=== PATIENT | female | born 1995 | race Caucasian/White ===

== ENCOUNTER → 2016-09-03 16:35 | Observation (INO) ==
[2016-09-03 13:06] LABS: Basophils % 0.2 %; Eosinophils % 0.3 %; Hematocrit 34.1 % (35.3-44.9); Immature Granulocytes % 0.3 % (0-4); Lymphocytes # 1.2 K/mcL (0.6-4.6); Lymphocytes % 13.1 %; Mean Corpuscular HGB Conc 35.2 g/dL (31.6-35.5); Mean Corpuscular Hemoglobin 32.4 pg (28.0-33.3); Mean Corpuscular Volume 92.2 fL (83.0-100.0); Mean Platelet Volume 11.7 fL (9.4-12.4); Monocytes # 0.5 K/mcL (0.0-1.3); Monocytes % 5.4 %; Neutrophils # 7.5 K/mcL (1.6-8.9); Platelet Count 167 K/mcL (140-400); Red Cell Distribution Width 13.4 % (11.5-14.5); Segmented Neutrophils % 80.7 %
[2016-09-03 13:13] LABS: Alanine Aminotransferase 8 Units/L (0-55); Aspartate Amino Transferase 12 Units/L (5-34); BUN/Creatinine Ratio 11 (6-26); Blood Urea Nitrogen 8 mg/dL (7-20); Lactate Dehydrogenase 155 Units/L (159-327); Uric Acid 4.5 mg/dL (2.6-6.0); eGFR For African Americans > 60 (> 60); eGFR For Non-African Americans > 60 (> 60)
[2016-09-03 14:05] LABS: Protein/Creatinine Ratio,Urine 0.12 mg/mg (0-0.20)
--- NOTE | 2016-09-03 15:05 | Discharge Summary ---
Date of Encounter: 09/03/16 Time of Encounter: 15:06 - Discharge Diagnosis (1) Hypertension affecting in third trimester Priority: Primary Status: Acute Comments: Patient sent to labor and delivery triage for evaluation after being seen in office today for routine appointment with increased blood pressure. She states this morning that she had a headache and blurry vision; she denies the aforementioned currently. She states positive movement. She denies LOF, vaginal discharge, and vaginal bleeding. Upon arrival patient's blood pressures were 160-170/90-100. PIH labs and urine drawn - WNL Serial blood pressure Extended monitoring - Reactive NST per gestational age IV labetalol 20 mg given - blood pressure stabilizes First dose PO labetalol given in triage and blood pressure monitored for 2 hours after dose prior to discharge. Discharge home with 100mg PO labetalol TID, blood pressure monitoring at home, and follow up with Dr Miller on Thursday in office. POC per consult with Dr Montelongo. (2) 28 weeks gestation of Priority: Secondary Status: Acute Comments: Follow up with Dr Miller on Thursday (3) Rh negative status during Priority: Primary Status: Acute Comments: Rhogam not given in office today. Will give in triage prior to discharge. Qualifiers: Trimester: third trimester Qualified Code(s): O09.893 - Supervision of other high risk pregnancies, third trimester - Discharge Medications Prescriptions: Blood Pressure Kit Med,Large [Blood Pressure Monitor] 1 each MC ONCE #1 kit Labetalol [Trandate] 100 mg PO TID #90 tablet Home Medications: Blood Pressure Kit Med,Large [Blood Pressure Monitor] 1 each MC ONCE #1 kit 10/13 [Rx] Labetalol [Trandate] 100 mg PO TID #90 tablet 09/03/16 [Rx] Vit Calc,Iron,Folic [ Vitamins] 1 tab PO DAILY 09/03/16 [ History] Ranitidine HCl 150 mg PO DAILY 09/03/16 [History] Allergies/Adverse Reactions: Allergies No Known Allergies Allergy (Verified 09/03/16 12:19) Data Procedures and tests throughout hospitalization: Laboratory Tests 09/03/16 09/03/16 09/03/16 12:40 12:40 12:40 WBC 9.3 RBC 3.70 L Hgb 12.0 Hct 34.1 L MCV 92.2 MCH 32.4 MCHC 35.2 RDW 13.4 Plt Count 167 MPV 11.7 Immature Gran % 0.3 Seg Neutrophils % 80.7 Lymphocytes % 13.1 Monocytes % 5.4 Eosinophils % 0.3 Basophils % 0.2 Neutrophils # 7.5 Lymphocytes # 1.2 Monocytes # 0.5 Eosinophils # 0.0 Basophils # 0.0 BUN 8 Creatinine 0.71 Est GFR ( Amer) > 60 Est GFR (Non-Af Amer) > 60 BUN/Creatinine Ratio 11 Uric Acid 4.5 AST 12 ALT 8 Lactate Dehydrogenase 155 L Urine Creatinine Protein/Creatinin Ratio Urine Total Protein Blood Type A NEGATIVE Antibody Screen NEGATIVE 09/03/16 13:27 WBC RBC Hgb Hct MCV MCH MCHC RDW Plt Count MPV Immature Gran % Seg Neutrophils % Lymphocytes % Monocytes % Eosinophils % Basophils % Neutrophils # Lymphocytes # Monocytes # Eosinophils # Basophils # BUN Creatinine Est GFR ( Amer) Est GFR (Non-Af Amer) BUN/Creatinine Ratio Uric Acid AST ALT Lactate Dehydrogenase Urine Creatinine 69 Protein/Creatinin Ratio 0.12 Urine Total Protein 8 Blood Type Antibody Screen Labs on day of discharge: Labs from last 24 hours 09/03/16 09/03/16 09/03/16 13:27 12:40 12:40 WBC 9.3 RBC 3.70 L Hgb 12.0 Hct 34.1 L MCV 92.2 MCH 32.4 MCHC 35.2 RDW 13.4 Plt Count 167 MPV 11.7 Immature Gran % 0.3 Seg Neutrophils % 80.7 Lymphocytes % 13.1 Monocytes % 5.4 Eosinophils % 0.3 Basophils % 0.2 Neutrophils # 7.5 Lymphocytes # 1.2 Monocytes # 0.5 Eosinophils # 0.0 Basophils # 0.0 BUN 8 Creatinine 0.71 Est GFR ( Amer) > 60 Est GFR (Non-Af Amer) > 60 BUN/Creatinine Ratio 11 Uric Acid 4.5 AST 12 ALT 8 Lactate Dehydrogenase 155 L Urine Creatinine 69 Protein/Creatinin Ratio 0.12 Urine Total Protein 8 Blood Type Antibody Screen 09/03/16 12:40 WBC RBC Hgb Hct MCV MCH MCHC RDW Plt Count MPV Immature Gran % Seg Neutrophils % Lymphocytes % Monocytes % Eosinophils % Basophils % Neutrophils # Lymphocytes # Monocytes # Eosinophils # Basophils # BUN Creatinine Est GFR ( Amer) Est GFR (Non-Af Amer) BUN/Creatinine Ratio Uric Acid AST ALT Lactate Dehydrogenase Urine Creatinine Protein/Creatinin Ratio Urine Total Protein Blood Type A NEGATIVE Antibody Screen NEGATIVE Date of admission: 09/03/16 12:11 Primary care physician: PCP NO Discharging clinician: Kendra Whitt Anticipated date of discharge: 09/03/16 - Patient Status Disposition: Home, Self-Care Condition: Good Functional capacity at discharge: independent ambulation - Discharge Instructions Follow Up With: NO,PCP [Primary Care Provider] - Tino Miller MD [Partnered Physician] - Additional Instructions: LABOR AND DELIVERY DISCHARGE INSTRUCTIONS Signs and Symptoms to be Reported to your Doctor Immediately: * Sudden gush, continuous or intermittent lead of fluid from vagina (note the time of gush and color of fluid) * Onset of bright red vaginal bleeding with or without pain (if you had a vaginal exam during this visit you may notice some dark red spotting. This is normal.) * Lower abdominal cramping or backache that is premenstrual-like feeling. * More than 6 contractions in one hour. * Burning during urination, having to urinate more frequently or pain in your mid-back. * A change in the baby's activity. This could be an increase or decrease in activity. * Severe headache which does not go away with tylenol. * Sudden swelling in the face, hands, arms and/or legs. * Upper abdominal pain - sometimes associated with heartburn or nausea and is not relieved by Maalox, Mylanta or Tums. * Dizziness or blurred vision or visual disturbances (seeing stars/lights). * Kick Counts One hour after a meal, lay down on one side in a quiet place. Count the number of sara the baby moves during an hour. If less than 6 movements, notify your physician. Diet: *Force fluids - 8-10 tall glasses of fluid per day. May include popsicles and jello. 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 No decels Appropriate for gestational age No contractions per toco, palpation, or patient report. Uterus palpates soft - Extremities Exam Extremities exam IM: Present: normal capillary refill, normal inspection, radial pulses palpable and symetrical - Neurological Exam Neurological exam: alert, oriented X3, reflexes normal - VTE Reasons for not Prescribing Prophylaxis: Treatment not Indicated - Low risk for VTE
[~2016-09-03 16:35] MED LIST: *HR* Labetalol 20 MG/4 ML SYRINGE IVP ONE; *HR* Labetalol 20 MG/4 ML SYRINGE IVP STA; Rho Immune Globulin 1,500 UNIT SYRINGE IM ONE
== END | disposition home or self-care (01) ==
LOC: 1NENULAB
PROVIDERS: ADMIT Obstetrics & Gynecology; ATTEND Obstetrics & Gynecology

== ENCOUNTER → 2016-09-04 21:02 | Observation (INO) ==
[2016-09-04 18:57] LABS: Basophils % 0.2 %; Hematocrit 32.7 % (35.3-44.9); Hemoglobin 11.2 g/dL (11.5-15.4); Immature Granulocytes % 13.6 % (0-4); Lymphocytes # 0.5 K/mcL (0.6-4.6); Lymphocytes % 5.5 %; Mean Corpuscular HGB Conc 34.3 g/dL (31.6-35.5); Mean Corpuscular Hemoglobin 31.7 pg (28.0-33.3); Mean Corpuscular Volume 92.6 fL (83.0-100.0); Mean Platelet Volume 11.6 fL (9.4-12.4); Monocytes # 0.3 K/mcL (0.0-1.3); Monocytes % 2.7 %; Neutrophils # 1.3 K/mcL (1.6-8.9); Platelet Count 161 K/mcL (140-400); Red Blood Count 3.53 M/mcL (3.82-4.97); Red Cell Distribution Width 13.4 % (11.5-14.5)
[2016-09-04 19:08] LABS: Alanine Aminotransferase 8 Units/L (0-55); Aspartate Amino Transferase 12 Units/L (5-34); BUN/Creatinine Ratio 11 (6-26); Blood Urea Nitrogen 8 mg/dL (7-20); Lactate Dehydrogenase 149 Units/L (159-327); Uric Acid 4.4 mg/dL (2.6-6.0); eGFR For African Americans > 60 (> 60); eGFR For Non-African Americans > 60 (> 60)
[2016-09-04 19:21] LABS: Platelet Estimate Normal (Normal)
--- NOTE | 2016-09-04 20:22 | Discharge Summary ---
Date of Encounter: 09/04/16 Time of Encounter: 20:22 - Discharge Diagnosis (1) 28 weeks gestation of Priority: Primary Status: Acute Comments: PIH evaluation (2) Hypertension affecting in third trimester Priority: Secondary Status: Acute Comments: stable BP Discussed patient with Dr. York. Patient currently on Labetalol 100mg po TID. home with 24 hour urine start baby asprin daily - Discharge Medications Prescriptions: Aspirin 81 mg PO DAILY #30 tab.chew Home Medications: Blood Pressure Kit Med,Large [Blood Pressure Monitor] 1 each ONCE #1 kit 10/13 [Rx] Labetalol [Trandate] 100 mg PO TID #90 tablet 09/03/16 [Rx] Vit Calc,Iron,Folic [ Vitamins] 1 tab PO DAILY 09/03/16 [ History] Ranitidine HCl 150 mg PO BID 09/03/16 [History] Aspirin 81 mg PO DAILY #30 tab.chew 09/04/16 [Rx] Allergies/Adverse Reactions: Allergies No Known Allergies Allergy (Verified 09/04/16 18:23) Data Procedures and tests throughout hospitalization: Laboratory Tests 09/04/16 09/04/16 18:43 18:43 WBC 9.4 RBC 3.53 L Hgb 11.2 L Hct 32.7 L MCV 92.6 MCH 31.7 MCHC 34.3 RDW 13.4 Plt Count 161 MPV 11.6 Immature Gran % 13.6 H Seg Neutrophils % 14.0 Lymphocytes % 5.5 Monocytes % 2.7 Eosinophils % 64.0 Basophils % 0.2 Neutrophils # 1.3 L Lymphocytes # 0.5 L Monocytes # 0.3 Eosinophils # 6.0 H Basophils # 0.0 Platelet Estimate Normal BUN 8 Creatinine 0.73 Est GFR ( Amer) > 60 Est GFR (Non-Af Amer) > 60 BUN/Creatinine Ratio 11 Uric Acid 4.4 AST 12 ALT 8 Lactate Dehydrogenase 149 L Labs on day of discharge: Labs from last 24 hours 09/04/16 09/04/16 18:43 18:43 WBC 9.4 RBC 3.53 L Hgb 11.2 L Hct 32.7 L MCV 92.6 MCH 31.7 MCHC 34.3 RDW 13.4 Plt Count 161 MPV 11.6 Immature Gran % 13.6 H Seg Neutrophils % 14.0 Lymphocytes % 5.5 Monocytes % 2.7 Eosinophils % 64.0 Basophils % 0.2 Neutrophils # 1.3 L Lymphocytes # 0.5 L Monocytes # 0.3 Eosinophils # 6.0 H Basophils # 0.0 Platelet Estimate Normal BUN 8 Creatinine 0.73 Est GFR ( Amer) > 60 Est GFR (Non-Af Amer) > 60 BUN/Creatinine Ratio 11 Uric Acid 4.4 AST 12 ALT 8 Lactate Dehydrogenase 149 L Date of admission: 09/04/16 18:04 Discharging clinician: Marietta Weathers Anticipated date of discharge: 09/04/16 - Patient Status Disposition: Home, Self-Care Condition: Good Functional capacity at discharge: independent ambulation - Discharge Instructions Follow Up With: Tino Miller MD [Partnered Physician] - - Diet and Activity Activity: increase activity as tolerated Diet: regular diet Hospital Course SECURITY REP Hospital course: Patient is 21 y/o at 28w4d presents to labor and delivery with c/o elevated BP at home with cuff despite her labetalol. Patient also states after labetalol she felt dizzy and light headed but had not ate anything. Last dose was 100mg po at 1200. Patient denies headache, visual disturbances or epigastric pain. Patient is scheduled to follow up with Dr. Miller on Thursday. Time Attestation: Total time spent providing and/or coordinating discharge services: Time Spent: Less than 30 minutes Exam - Constitutional General appearance IM: A&O X 3, pleasant, answers questions appropriately - Respiratory Respiratory exam: Present: CTAB - Cardiovascular Cardiovascular exam IM: Present: RRR, +S1, +S2 - GI/Abdominal GI/Abdominal exam IM: normal bowel sounds - Extremities Exam Extremities exam IM: Present: full ROM, normal capillary refill, normal inspection - Neurological Exam Neurological exam: alert, oriented X3, reflexes normal - Other Additional findings: 2+DTRs no clonus. - VTE Reasons for not Prescribing Prophylaxis: Treatment not Indicated - Low risk for VTE
== END | disposition home or self-care (01) ==
LOC: 1NENULAB

== ENCOUNTER 2016-09-17 15:56 | Observation (INO) ==
[2016-09-17] MEDS ORDERED: Betamethasone Acet/SodPhos 6 MG/ML MDV IM SCH (16:15)
[2016-09-17 16:25] VITALS: BP 168/88
[2016-09-17 16:28] LABS: Basophils % 0.2 %; Eosinophils % 0.4 %; Hematocrit 33.2 % (35.3-44.9); Hemoglobin 11.5 g/dL (11.5-15.4); Immature Granulocytes % 0.7 % (0-4); Lymphocytes # 1.2 K/mcL (0.6-4.6); Lymphocytes % 12.6 %; Mean Corpuscular HGB Conc 34.6 g/dL (31.6-35.5); Mean Corpuscular Hemoglobin 32.2 pg (28.0-33.3); Mean Platelet Volume 11.3 fL (9.4-12.4); Monocytes # 0.6 K/mcL (0.0-1.3); Monocytes % 6.2 %; Neutrophils # 7.9 K/mcL (1.6-8.9); Platelet Count 182 K/mcL (140-400); Red Blood Count 3.57 M/mcL (3.82-4.97); Red Cell Distribution Width 13.5 % (11.5-14.5); Segmented Neutrophils % 79.9 %
[2016-09-17 16:41] LABS: Alanine Aminotransferase 9 Units/L (0-55); Aspartate Amino Transferase 14 Units/L (5-34); BUN/Creatinine Ratio 13 (6-26); Blood Urea Nitrogen 10 mg/dL (7-20); Lactate Dehydrogenase 150 Units/L (159-327); Uric Acid 4.9 mg/dL (2.6-6.0); eGFR For African Americans > 60 (> 60); eGFR For Non-African Americans > 60 (> 60)
--- NOTE | 2016-09-17 16:41 | OB/GYN History & Physical ---
Date of Encounter: 09/17/16 Time of Encounter: 16:38 Assessment and Plan (1) 30 weeks gestation of Current visit: Yes Status: Acute admitted for observation for PIH evaluation and steroids. (2) Hypertension affecting in third trimester Current visit: No Status: Acute PIH labs and serial BPs History of Present Illness Chief complaint: Elevated BP in HPI: Ms. Rhoeds is a 21 year old female at 30w3d presents to labor and delivery after being seen in office by Dr. Miller. Patient had elevated pressure of 142/98. Dr. Miller wanted patient to have steroids and PIH evaluation. Patient denies headache, visual disturbances or epigastric pain. Patient reports +FM. Patient is currently taking Labetalol 200mg po BID and 81mg ASA daily. Past Med Surg Social Fam HX - Past Medical History Source: patient Medical history: no medical history Psychiatric history: no psych history - Past Surgical History Surgical History: other - Social History Smoking Status: Current every day smoker Smokeless Tobacco Status: No Alcohol use: none Drug use: none - Family History Mother History Unknown: Yes Adopted: No Living Status: Still Living Hx Family Cardiac Disorders: No Hx Family Respiratory Disorders: No Hx Family Cancer: No Hx Family GI Disorders: No Hx Family Endocrine Disorder: No Hx Family Neuromuscular Disorders: No Hx Family Neurologic Disorders: No Hx Family HEENT Disorders: No Hx Family Autoimmune Disorders: No Obstetrical History - Pregnancies : 1 Para: 0 Term: 0 : 0 Ab's: 0 Livin Medications and Allergies Blood Pressure Kit Med,Large [Blood Pressure Monitor] 1 each ONCE #1 kit 10/13 [Rx] Labetalol [Trandate] 100 mg PO TID #90 tablet 09/03/16 [Rx] Vit Calc,Iron,Folic [ Vitamins] 1 tab PO DAILY 09/03/16 [ History] Ranitidine HCl 150 mg PO BID 09/03/16 [History] Aspirin 81 mg PO DAILY #30 tab.chew 09/04/16 [Rx] Allergies No Known Allergies Allergy (Verified 09/04/16 18:23) Review of System OB - Constitutional Constitutional ROS IM: no chills, no fatigue, no fever(s), no headache(s) - Cardiovascular Cardiovascular: no chest pain, no edema, no lightheadedness, no palpitations, no syncope - Respiratory Respiratory: no cough - Gastrointestinal Gastrointestinal: no abdominal pain, no constipation, no diarrhea, no heartburn , no nausea, no vomiting - Genitourinary Genitourinary: no abnormal vaginal bleeding, no dysuria, no flank pain, no urinary frequency, no urinary incontinence, no urinary urgency, no vaginal discharge - Neurological Nerological: no dizziness, no headache(s), no loss of vision, no vertigo, no weakness, no other visual disturbances Exam - Vital Signs Vital signs: Initial Vital Signs Temp Pulse Resp BP 98.5 F 92 14 168/88 09/17/16 16:02 09/17/16 16:02 09/17/16 16:02 09/17/16 16:02 - Constitutional Constitutional: well developed, well nourished, no acute distress, average body habitus - HEENT HEENT: Normocephaly, Mucus Membranes Moist - Neck Neck exam: full ROM, supple - Lungs Respiratory exam: CTAB - Cardiovascular Cardiovascular exam: RRR, +S1, +S2 - Abdomen Abdomen: Present: bowel sounds normal, gravid, non tender - Extremities Extremities exam: full ROM, normal capillary refill, normal inspection Deep Tendon Reflex Grade: 2+ Normal (no clonus) - Uterus Uterus exam: Present: normal size, normal contour (FHR 135 bpm moderate variability +15x15 accels no decels noted. No contractions noted. ) Results Result Diagrams: 09/17/16 16:18 Abnormal lab results RBC 3.57 M/mcL (3.82-4.97) L 09/17/16 16:18 Hct 33.2 % (35.3-44.9) L 09/17/16 16:18 All other labs normal. - VTE Reasons for not Prescribing Prophylaxis: Treatment not Indicated - Low risk for VTE
--- NOTE | 2016-09-17 18:34 | Discharge Summary ---
Date of Encounter: 09/17/16 Time of Encounter: 18:33 - Discharge Diagnosis (1) 30 weeks gestation of Priority: Primary Status: Acute Comments: observation (2) Hypertension affecting in third trimester Priority: Secondary Status: Acute Comments: Labetalol increased to 200mg po TID Second steroid injection scheduled in office tomorrow at 1600 (3) NST (non-stress test) reactive Priority: Secondary Status: Acute Comments: FHR 135 bpm moderate variability +15x15 accels no decels noted. - Discharge Medications Home Medications: Blood Pressure Kit Med,Large [Blood Pressure Monitor] 1 each ONCE #1 kit 10/13 [Rx] Vit Calc,Iron,Folic [ Vitamins] 1 tab PO DAILY 09/03/16 [ History] Ranitidine HCl 150 mg PO BID 09/03/16 [History] Aspirin 81 mg PO DAILY #30 tab.chew 09/04/16 [Rx] Labetalol [Trandate] 200 mg PO TID #90 tablet 09/17/16 [Rx] Allergies/Adverse Reactions: Allergies No Known Allergies Allergy (Verified 09/04/16 18:23) Data Procedures and tests throughout hospitalization: Laboratory Tests 09/17/16 09/17/16 16:18 16:18 WBC 9.9 RBC 3.57 L Hgb 11.5 Hct 33.2 L MCV 93.0 MCH 32.2 MCHC 34.6 RDW 13.5 Plt Count 182 MPV 11.3 Immature Gran % 0.7 Seg Neutrophils % 79.9 Lymphocytes % 12.6 Monocytes % 6.2 Eosinophils % 0.4 Basophils % 0.2 Neutrophils # 7.9 Lymphocytes # 1.2 Monocytes # 0.6 Eosinophils # 0.0 Basophils # 0.0 BUN 10 Creatinine 0.78 Est GFR ( Amer) > 60 Est GFR (Non-Af Amer) > 60 BUN/Creatinine Ratio 13 Uric Acid 4.9 AST 14 ALT 9 Lactate Dehydrogenase 150 L Labs on day of discharge: Labs from last 24 hours 09/17/16 09/17/16 16:18 16:18 WBC 9.9 RBC 3.57 L Hgb 11.5 Hct 33.2 L MCV 93.0 MCH 32.2 MCHC 34.6 RDW 13.5 Plt Count 182 MPV 11.3 Immature Gran % 0.7 Seg Neutrophils % 79.9 Lymphocytes % 12.6 Monocytes % 6.2 Eosinophils % 0.4 Basophils % 0.2 Neutrophils # 7.9 Lymphocytes # 1.2 Monocytes # 0.6 Eosinophils # 0.0 Basophils # 0.0 BUN 10 Creatinine 0.78 Est GFR ( Amer) > 60 Est GFR (Non-Af Amer) > 60 BUN/Creatinine Ratio 13 Uric Acid 4.9 AST 14 ALT 9 Lactate Dehydrogenase 150 L Date of admission: 09/17/16 15:56 Primary care physician: PCP NO Discharging clinician: Marietta Weathers Anticipated date of discharge: 09/17/16 - Patient Status Disposition: Home, Self-Care Condition: Good Functional capacity at discharge: independent ambulation - Discharge Instructions Follow Up With: NO,PCP [Primary Care Provider] - Tino Miller MD [Partnered Physician] - Additional Instructions: LABOR AND DELIVERY DISCHARGE INSTRUCTIONS Signs and Symptoms to be Reported to your Doctor Immediately: * Sudden gush, continuous or intermittent lead of fluid from vagina (note the time of gush and color of fluid) * Onset of bright red vaginal bleeding with or without pain (if you had a vaginal exam during this visit you may notice some dark red spotting. This is normal.) * Lower abdominal cramping or backache that is premenstrual-like feeling. * More than 6 contractions in one hour. * Burning during urination, having to urinate more frequently or pain in your mid-back. * A change in the baby's activity. This could be an increase or decrease in activity. * Severe headache which does not go away with tylenol. * Sudden swelling in the face, hands, arms and/or legs. * Upper abdominal pain - sometimes associated with heartburn or nausea and is not relieved by Maalox, Mylanta or Tums. * Dizziness or blurred vision or visual disturbances (seeing stars/lights). * Kick Counts One hour after a meal, lay down on one side in a quiet place. Count the number of sara the baby moves during an hour. If less than 6 movements, notify your physician. Diet: *Force fluids - 8-10 tall glasses of fluid per day. May include popsicles and jello. *Limit caffeine - this includes chocolate, coffee, tea, any soft drink containing such as all robel, Caesar Yellow and Mountain Dew - Diet and Activity Activity: increase activity as tolerated Diet: regular diet Hospital Course [employer] Hospital course: Discussed NST and blood pressures with Dr. Sweet. Dr. Sweet states patient can be discharge and will need to take labetalol 200mg po TID. Time Attestation: Total time spent providing and/or coordinating discharge services: Time Spent: Less than 30 minutes Exam - Constitutional Vitals: Temp Pulse Resp BP 98.5 F 92 14 168/88 09/17/16 16:02 09/17/16 16:02 09/17/16 16:02 09/17/16 16:02 General appearance IM: A&O X 3, pleasant, answers questions appropriately (FHR 135 bpm moderate variability +15x15 accels no decels noted. CAt. 1 tracing) - VTE Reasons for not Prescribing Prophylaxis: Treatment not Indicated - Low risk for VTE
== END 2016-09-17 18:35 | disposition home or self-care (01) ==
LOC: 1NENULAB
PROVIDERS: ADMIT Obstetrics & Gynecology; ATTEND Obstetrics & Gynecology

== ENCOUNTER → 2016-10-06 13:35 | Observation (INO) ==
[2016-10-06 12:45] LABS: Basophils % 0.4 %; Eosinophils # 0.1 K/mcL (0.0-0.6); Eosinophils % 0.7 %; Hematocrit 33.7 % (35.3-44.9); Hemoglobin 11.6 g/dL (11.5-15.4); Immature Granulocytes % 0.6 % (0-4); Lymphocytes # 1.5 K/mcL (0.6-4.6); Lymphocytes % 14.7 %; Mean Corpuscular HGB Conc 34.4 g/dL (31.6-35.5); Mean Corpuscular Hemoglobin 32.9 pg (28.0-33.3); Mean Corpuscular Volume 95.5 fL (83.0-100.0); Monocytes # 0.8 K/mcL (0.0-1.3); Monocytes % 8.1 %; Neutrophils # 7.5 K/mcL (1.6-8.9); Platelet Count 175 K/mcL (140-400); Red Blood Count 3.53 M/mcL (3.82-4.97); Red Cell Distribution Width 13.2 % (11.5-14.5); Segmented Neutrophils % 75.5 %
[2016-10-06 12:54] LABS: Protein/Creatinine Ratio,Urine 0.15 mg/mg (0-0.20)
[2016-10-06 12:59] LABS: Alanine Aminotransferase 10 Units/L (0-55); Aspartate Amino Transferase 14 Units/L (5-34); BUN/Creatinine Ratio 13 (6-26); Blood Urea Nitrogen 9 mg/dL (7-20); Lactate Dehydrogenase 166 Units/L (159-327); Uric Acid 4.9 mg/dL (2.6-6.0); eGFR For African Americans > 60 (> 60); eGFR For Non-African Americans > 60 (> 60)
--- NOTE | 2016-10-06 13:19 | Discharge Summary ---
Date of Encounter: 10/06/16 Time of Encounter: 13:18 - Discharge Diagnosis (1) Hypertension affecting in third trimester Priority: Primary Status: Acute Comments: Patient here PIH evaluations. Lab work and BPs reviewed with Dr. Coronado. Verbal order given from Dr. Coronado to discharge home. (2) NST (non-stress test) reactive Priority: Secondary Status: Acute Comments: Reactive NST. Baseline 135 bpm moderate variability + 15x15 accels no decels noted. No contractions - Discharge Medications Home Medications: Blood Pressure Kit Med,Large [Blood Pressure Monitor] 1 each ONCE #1 kit 10/13 [Rx] Vit Calc,Iron,Folic [ Vitamins] 1 tab PO DAILY 09/03/16 [ History] Ranitidine HCl 150 mg PO BID 09/03/16 [History] Aspirin 81 mg PO DAILY #30 tab.chew 09/04/16 [Rx] Labetalol [Trandate] 200 mg PO TID #90 tablet 09/17/16 [Rx] Allergies/Adverse Reactions: Allergies No Known Allergies Allergy (Verified 09/04/16 18:23) Data Procedures and tests throughout hospitalization: Laboratory Tests 10/06/16 10/06/16 10/06/16 12:30 12:30 12:30 WBC 10.0 RBC 3.53 L Hgb 11.6 Hct 33.7 L MCV 95.5 MCH 32.9 MCHC 34.4 RDW 13.2 Plt Count 175 MPV 11.0 Immature Gran % 0.6 Seg Neutrophils % 75.5 Lymphocytes % 14.7 Monocytes % 8.1 Eosinophils % 0.7 Basophils % 0.4 Neutrophils # 7.5 Lymphocytes # 1.5 Monocytes # 0.8 Eosinophils # 0.1 Basophils # 0.0 BUN 9 Creatinine 0.72 Est GFR ( Amer) > 60 Est GFR (Non-Af Amer) > 60 BUN/Creatinine Ratio 13 Uric Acid 4.9 AST 14 ALT 10 Lactate Dehydrogenase 166 Urine Creatinine 61 Protein/Creatinin Ratio 0.15 Urine Total Protein 9 Labs on day of discharge: Labs from last 24 hours 10/06/16 10/06/16 10/06/16 12:30 12:30 12:30 WBC 10.0 RBC 3.53 L Hgb 11.6 Hct 33.7 L MCV 95.5 MCH 32.9 MCHC 34.4 RDW 13.2 Plt Count 175 MPV 11.0 Immature Gran % 0.6 Seg Neutrophils % 75.5 Lymphocytes % 14.7 Monocytes % 8.1 Eosinophils % 0.7 Basophils % 0.4 Neutrophils # 7.5 Lymphocytes # 1.5 Monocytes # 0.8 Eosinophils # 0.1 Basophils # 0.0 BUN 9 Creatinine 0.72 Est GFR ( Amer) > 60 Est GFR (Non-Af Amer) > 60 BUN/Creatinine Ratio 13 Uric Acid 4.9 AST 14 ALT 10 Lactate Dehydrogenase 166 Urine Creatinine 61 Protein/Creatinin Ratio 0.15 Urine Total Protein 9 Date of admission: 10/06/16 12:11 Discharging clinician: Marietta Weathers Anticipated date of discharge: 10/06/16 - Patient Status Disposition: Home, Self-Care Condition: Good Functional capacity at discharge: independent ambulation - Discharge Instructions Follow Up With: Tino Miller MD [Partnered Physician] - - Diet and Activity Activity: increase activity as tolerated Diet: regular diet Hospital Course MECHANIC'S ASSISTANT Hospital course: Patient is 21 y/o at 33w1d sent to labor and delivery from OB office for PIH evaluation and NST. Patient denies MILLS or visual disturbances. Patient denies Contractions, LOF or VB. Patient reports +FM. Time Attestation: Total time spent providing and/or coordinating discharge services: Time Spent: Less than 30 minutes Exam - Constitutional General appearance IM: A&O X 3, pleasant, answers questions appropriately - Respiratory Respiratory exam: Present: CTAB - Cardiovascular Cardiovascular exam IM: Present: RRR, +S1, +S2 - GI/Abdominal GI/Abdominal exam IM: normal bowel sounds - Extremities Exam Extremities exam IM: Present: full ROM, normal capillary refill, normal inspection - Neurological Exam Neurological exam: alert, oriented X3, reflexes normal
[2016-10-06 13:59] LABS: Bilirubin,Urine Negative (Negative); Clarity,Urine Clear (Clear); Color,Urine Yellow (Yellow); Glucose,Urine (UA) Normal (Normal); Ketones,Urine Negative (Negative)
[2016-10-06 14:00] LABS: Blood,Urine Negative (Negative); Leukocyte Esterase,Urine Negative (Negative); Nitrite,Urine Negative (Negative); PH,Urine 6.5 pH Units (5.0-8.0); Protein,Urine Negative (Neg-Trace); Specific Gravity,Urine 1.016 (1.010-1.025); Urobilinogen,Urine Normal (Normal)
== END | disposition home or self-care (01) ==
LOC: 1NENULAB
PROVIDERS: ADMIT Obstetrics & Gynecology; ATTEND Obstetrics & Gynecology

== ENCOUNTER 2016-11-02 07:42 | Inpatient (IN) ==
[2016-11-02] MEDS ORDERED: Naloxone 0.4 MG/ML INJ IVP PRN ×2 (08:09→22:29)
[2016-11-02] MEDS ORDERED: Famotidine 20 MG/2 ML VIAL IVP PRN ×2 (08:09→22:29)
[2016-11-02] MEDS ORDERED: Ondansetron 4 MG/2 ML VIAL IVP PRN ×4 (08:09→22:29)
[2016-11-02] MEDS ORDERED: Metoclopramide 10 MG/2 ML VIAL IVP PRN ×4 (08:09→22:29)
[2016-11-02] MEDS ORDERED: Penicillin G Potassium 5,000,000 UNIT in D5% in Water (Mini-Bag+) 100 ML IVPB ONE (08:12)
[2016-11-02 08:15] LABS: Basophils % 0.3 %; Eosinophils # 0.1 K/mcL (0.0-0.6); Eosinophils % 0.7 %; Hematocrit 32.4 % (35.3-44.9); Hemoglobin 11.2 g/dL (11.5-15.4); Immature Granulocytes % 0.5 % (0-4); Lymphocytes # 1.3 K/mcL (0.6-4.6); Lymphocytes % 11.7 %; Mean Corpuscular HGB Conc 34.6 g/dL (31.6-35.5); Mean Corpuscular Hemoglobin 32.5 pg (28.0-33.3); Mean Corpuscular Volume 93.9 fL (83.0-100.0); Mean Platelet Volume 10.9 fL (9.4-12.4); Monocytes # 0.9 K/mcL (0.0-1.3); Monocytes % 8.6 %; Neutrophils # 8.6 K/mcL (1.6-8.9); Platelet Count 163 K/mcL (140-400); Red Blood Count 3.45 M/mcL (3.82-4.97); Red Cell Distribution Width 13.8 % (11.5-14.5); Segmented Neutrophils % 78.2 %
[2016-11-02] MEDS ORDERED: Ringers Solution, Lactated 1,000 ML IVC SCH ×2 (08:15→22:29)
[2016-11-02 08:28] LABS: Alanine Aminotransferase 8 Units/L (0-55); Aspartate Amino Transferase 12 Units/L (5-34); BUN/Creatinine Ratio 15 (6-26); Blood Urea Nitrogen 11 mg/dL (7-20); Lactate Dehydrogenase 163 Units/L (159-327); Uric Acid 5.6 mg/dL (2.6-6.0); eGFR For African Americans > 60 (> 60); eGFR For Non-African Americans > 60 (> 60)
--- NOTE | 2016-11-02 08:43 | OB/GYN History & Physical ---
Date of Encounter: 11/02/16 Time of Encounter: 08:41 Assessment and Plan (1) 37 weeks gestation of Current visit: Yes Status: Acute (2) Hypertension affecting in third trimester Current visit: Yes Status: Chronic low transverse at 37w (3) Breech presentation Current visit: Yes Status: Acute low transverse at 37w Qualifiers: Fetus number: single or unspecified fetus Qualified Code(s): O32.1XX0 - Maternal care for breech presentation, not applicable or unspecified History of Present Illness HPI: Ms. Rhodes is a 21 year old female, , 37w, presenting for induction of labor, pt has been diagnosed with uncontrolled gestational hypertension, twice weekly non-stress tests. Her PIs labs have been normal. Consultation with Maternal medicine recommends delivery at 37 weeks. She had steroids at 32 weeks. Denies contractions, bleeding. +good movement. Pt reports headaches and bp diastolic of 106 at home. Pt perceives that the baby has flipped. Limited ultrasound performed at bedside reveals breech presentation. Will proceed with primary low-transverse as per Dr. Miller. Past Med Surg Social Fam HX - Past Medical History Medical history: other Psychiatric history: no psych history - Past Surgical History Surgical History: other - Social History Smoking Status: Current every day smoker Smokeless Tobacco Status: No Alcohol use: none Drug use: none - Family History Mother History Unknown: Yes Adopted: No Living Status: Still Living Hx Family Cardiac Disorders: No Hx Family Respiratory Disorders: No Hx Family Cancer: No Hx Family GI Disorders: No Hx Family Endocrine Disorder: No Hx Family Neuromuscular Disorders: No Hx Family Neurologic Disorders: No Hx Family HEENT Disorders: No Hx Family Autoimmune Disorders: No Obstetrical History - Pregnancies : 1 Para: 0 Medications and Allergies Blood Pressure Kit Med,Large [Blood Pressure Monitor] 1 each ONCE #1 kit 10/13 [Rx] Vit Calc,Iron,Folic [ Vitamins] 1 tab PO DAILY 09/03/16 [ History] Ranitidine HCl 150 mg PO BID 09/03/16 [History] Aspirin 81 mg PO DAILY #30 tab.chew 09/04/16 [Rx] Labetalol [Trandate] 200 mg PO TID #90 tablet 09/17/16 [Rx] Allergies No Known Allergies Allergy (Verified 09/04/16 18:23) Review of System OB - Constitutional Constitutional ROS IM: as per HPI - Genitourinary Genitourinary: amenorrhea - Menstruation Menstruation: amenorrhea Exam - Vital Signs Vital signs: Initial Vital Signs Temp Pulse Resp BP 97.2 F L 93 14 138/89 11/02/16 08:01 11/02/16 08:01 11/02/16 08:01 11/02/16 08:01 - Constitutional Constitutional: well developed, well nourished, no acute distress - HEENT HEENT: Mucus Membranes Moist - Neck Neck exam: full ROM - Lungs Respiratory exam: CTAB - Cardiovascular Cardiovascular exam: +S1, +S2 - Abdomen Abdomen: Present: bowel sounds normal - Extremities Extremities exam: warm, radial pulses palpable and symetrical - Cervix Dilation: 1 Effacement: 40 Station: -2 Results Result Diagrams: 11/02/16 08:02 11/02/16 08:02 Abnormal lab results RBC 3.45 M/mcL (3.82-4.97) L 11/02/16 08:02 Hgb 11.2 g/dL (11.5-15.4) L 11/02/16 08:02 Hct 32.4 % (35.3-44.9) L 11/02/16 08:02 All other labs normal. - VTE Reasons for not Prescribing Prophylaxis: Treatment not Indicated - Low risk for VTE
[2016-11-02] MEDS ORDERED: ceFAZolin 2,000 MG in D5% in Water (Mini-Bag+) 100 ML IVPB ONE ×4 (09:06→22:29)
--- NOTE | 2016-11-02 10:09 | Anesthesia Evaluation PreOp ---
Date of Encounter: 11/02/16 Time of Encounter: 09:45 - Past History Planned Operation: primary c section Cardiac History: HTN ( induced,), Other (pt states has murmur, none heard on auscultation) Pulmonary History: Smoker, Pack/yr (6 pk yr, 1/2 ppd) AREA COUNSELOR History: Other (pt states history of passing out) Other Medical History: GERD Anesthesia History: No Prior Anesthetic Complications (adrenal gland removal, appendectomy, femur fx surgery) : Yes Test: Positive Alcohol Use: none Drug use: none Medications and Allergies Blood Pressure Kit Med,Large [Blood Pressure Monitor] 1 each MC ONCE #1 kit 10/13 [Rx] Vit Calc,Iron,Folic [ Vitamins] 1 tab PO DAILY 09/03/16 [ History] Ranitidine HCl 150 mg PO BID 09/03/16 [History] Aspirin 81 mg PO DAILY #30 tab.chew 09/04/16 [Rx] Labetalol [Trandate] 200 mg PO TID #90 tablet 09/17/16 [Rx] Allergies No Known Allergies Allergy (Verified 09/04/16 18:23) - Meds/Allergy Pre-op Review Medications Reviewed: Yes Allergies Reviewed: Yes Beta Blockers on Current Med List: Yes If Beta Blockers taken, Date/Time (Last Dose taken): 629 today Anesthesia Results - Labs 11/02/16 08:02 11/02/16 08:02 Anesthesia Exam 3 Vital Signs Time 0945 BP 138/89 Pulse 93 Resp O2 Sat Height: 66 Weight: 103 NPO (# of Hours): 8 Pain Scale: 0 Pain Scale Used: Numeric (1 - 10) - HEENT Pupil (Motor): Pupils equal Mallampati: II Teeth: Normal Oral Opening: Less than or equal to 3 - AREA COUNSELOR LOC: Oriented AREA COUNSELOR Motor: Normal RUE, Normal LUE, Normal RLE, Normal LLE, Normal Face AREA COUNSELOR Sensory: Normal: RUE, LUE, RLE, LLE, Face - Cardiac Rhythm: Regular Murmur: None JVD: No Carotid Bruit: No - Pulmonary Breath Sounds: bilateral Clear Respiratory Effort: Symmetrical Anesthesia Assess/Plan ASA Score: 3 Modified Shonto Scale for Level of Consciousness: Cooperative, oriented, and tranquil Anesthetic Plan: Regional Monitoring Plan: Standard Monitors Recovery Plan: PACU
[2016-11-02] MEDS ORDERED: Penicillin G Potassium 2,500,000 UNIT in D5% in Water 100 ML IVPB SCH (12:00)
[2016-11-02] MEDS ORDERED: *HR* Morphine Sulfate/PF 5 MG/10 ML AMPUL ONE (18:02)
[2016-11-02] MEDS ORDERED: *HR* HYDROmorphone (PF) 1 MG/ML SYRINGE IVP PRN ×2 (19:05→22:29)
[2016-11-02] MEDS ORDERED: Ondansetron 4 MG/2 ML VIAL IVP ONE ×2 (19:05→22:29)
[2016-11-02] MEDS ORDERED: *HR* Promethazine 25 MG/ML VIAL IVP PRN (19:05)
[2016-11-02] MEDS ORDERED: *HR* Labetalol 20 MG/4 ML SYRINGE IVP PRN ×2 (19:05→22:29)
[2016-11-02] MEDS ORDERED: Albuterol 2.5 MG/3 ML NEBULIZER IH ONE ×2 (19:05→22:29)
[2016-11-02] MEDS ORDERED: Ringers Solution, Lactated 1,000 ML ONE (19:47)
[2016-11-02] MEDS ORDERED: *HR* Oxytocin 10 UNIT/ML VIAL IM ONE (19:47)
[2016-11-02] MEDS ORDERED: Ibuprofen 600 MG TABLET PO PRN ×2 (19:50→22:29)
[2016-11-02] MEDS ORDERED: Sennosides 8.6 MG TABLET PO PRN ×2 (19:50→22:29)
[2016-11-02] MEDS ORDERED: Simethicone 80 MG TAB.CHEW PO PRN ×2 (19:50→22:29)
[2016-11-02] MEDS ORDERED: Rho Immune Globulin 1,500 UNIT SYRINGE IM ONE ×2 (19:50→22:29)
[2016-11-02] MEDS ORDERED: *HR* OxyCODONE/APAP 5/325 TABLET PO PRN ×2 (19:50→22:29)
[2016-11-02] MEDS ORDERED: Oxytocin 20 units/ LR 1000 mL 20 UNIT/1,000 ML BAG IVC SCH ×2 (20:00→22:29)
--- NOTE | 2016-11-02 20:05 | OB/GYN Procedure Note ---
<David Juárez - Last Filed: 11/03/16 06:43> Section - Date of procedure: 11/02/16 Preop diagnosis: breech Post-op diagnosis: same Procedure: primary low transverse Surgeon: Tino Miller Estimated blood loss (cc): 800 Elementary Librarian: David Juárez Anesthesiologist: Vincent Alvarez Anesthesia Type: Spinal section complications: none Disposition: PACU Specimens: Placenta, Cord blood - Infant (s) Infant A Infant Delivery Date: 11/02/16 Delivery Time: 19:05 Presentation: breech Gender: Female Viability: Viable Pounds: 5 Ounces: 2 at 1 minute: 8 at 5 minutes: 9 Shoulder Dystocia: not encountered Specimens collected: cord blood Placenta: complete extraction Cord: 3 umbilical vessels <Tino Miller - Last Filed: 11/03/16 08:23> Section - Post-op diagnosis: same (Unstable lie) Procedure: primary low transverse, other - Infant (s) A Presentation: compound (arm presentation) - Narrative Narrative: The patient was taken to the operating room. After satisfactory spinal anesthesia was achieved, patient was placed in supine position, Kelsey catheter inserted, prepped and draped in usual manner. After satisfactory timeout, the abdomen was entered through standard Maylard incision. The Kira retractor was placed. Peritoneum overlying the lower uterine segment was incised in a U- shaped fashion. Uterine cavity was entered sharply and extended laterally. The arm prolapsed through the incision. The lie was noted to be head in oblique lie to the patient's left. The head easily was maneuvered to vertex presentation and delivered vertex. The umbilical cord was doubly clamped and cut and the was handed to nursery staff for further evaluation. Placenta was manually removed from above location. The uterus was closed with 0 Monocryl in a single layer. The peritoneum was reapproximated over the incision with a 2-0 Vicryl. After assurance of hemostasis, the abdomen was closed in standard fashion using 0 Vicryl and the fascia and 3-0 Monocryl in the skin. Sterile dressing was applied. Patient did well as taken to recovery in satisfactory condition. Counts were correct.
--- NOTE | 2016-11-02 21:27 | Anesthesia Evaluation Post Op ---
Date of Encounter: 11/02/16 Time of Encounter: 21:25 - Vital Signs Vital Signs: 3 Vital Signs Time 2125 BP 141/80 Pulse 67 Resp 16 O2 Sat 98 ra - Lungs Lungs: Clear Ascult./Percussion - Airway Airway: Non-obstructed - Cardiovascular Regular Rate - Mental Status Mental Status: Alert & Oriented, Answers Appropriately - Pain Pain Scale: 4 Pain Scale used: Numeric (1 - 10) - Nausea Vomiting Nausea Vomiting: Not Present - Hydration Hydration: NPO, Kelsey catheter Notes: 11/02/16 21:26 patient moving legs w/o difficulty - Discharge PostOp Status: Transfer Patient to floor
[2016-11-02] MEDS ORDERED: *HR* Morphine 2 MG/ML SYRINGE IVP PRN (22:29)
[2016-11-03] MEDS ORDERED: Oxytocin 20 units/ LR 1000 mL 20 UNIT/1,000 ML BAG IVC ONE ×2 (00:12→08:13)
[2016-11-03] MEDS ORDERED: Sennosides 8.6 MG TABLET PO PRN (02:36)
[2016-11-03] MEDS ORDERED: Ondansetron 4 MG/2 ML VIAL IVP PRN (02:37)
[2016-11-03] MEDS ORDERED: Simethicone 80 MG TAB.CHEW PO PRN (02:37)
[2016-11-03] MEDS ORDERED: *HR* OxyCODONE/APAP 5/325 TABLET PO PRN (02:38)
[2016-11-03 05:38] LABS: Basophils % 0.2 %; Eosinophils % 0.2 %; Hematocrit 29.7 % (35.3-44.9); Hemoglobin 10.3 g/dL (11.5-15.4); Immature Granulocytes % 0.4 % (0-4); Lymphocytes % 7.7 %; Mean Corpuscular HGB Conc 34.7 g/dL (31.6-35.5); Mean Corpuscular Hemoglobin 32.7 pg (28.0-33.3); Mean Corpuscular Volume 94.3 fL (83.0-100.0); Mean Platelet Volume 11.5 fL (9.4-12.4); Monocytes # 0.8 K/mcL (0.0-1.3); Neutrophils # 11.2 K/mcL (1.6-8.9); Platelet Count 156 K/mcL (140-400); Red Blood Count 3.15 M/mcL (3.82-4.97); Red Cell Distribution Width 13.6 % (11.5-14.5); Segmented Neutrophils % 85.5 %
--- NOTE | 2016-11-03 08:29 | OB/GYN Progress Note ---
Date of Encounter: 11/03/16 Time of Encounter: 08:27 - Assessment and Plan (1) Delivered by section Current Visit: Yes Status: Acute Continue routine postop/ care possible discharge home tomorrow (2) Hypertension affecting in third trimester Current Visit: Yes Status: Chronic Continue labetalol daily Subjective - Subjective Principal diagnosis: Postop/ day 1 primary c/s for malpresentation Interval history: Patient sitting up in bed. Kelsey catheter draining clear yellow urine. light lochia. Patient reports: appetite normal, pain well controlled : doing well, nursing well Objective - Vital Signs Latest vital signs: Vital Signs Temp Pulse Resp BP Pulse Ox 11/03/16 07:30 98.8 F 98 16 132/84 98 11/03/16 04:00 98.2 F 97 16 149/94 97 11/03/16 01:00 98.2 F 97 14 130/86 97 11/02/16 23:59 98.1 F 88 14 137/91 98 11/02/16 23:00 98.5 F 79 14 136/84 99 11/02/16 22:30 98.0 F 73 14 148/90 99 11/02/16 22:00 97.5 F L 77 14 133/86 98 Intake and Output 11/02/16 11/03/16 11/03/16 23:59 07:59 15:59 Intake Total 800 / 800 Output Total 1550 / 1550 700 / 700 Balance -1550 / -1550 100 / 100 Intake: Oral 800 / 800 Output: Estimated Blood Loss 800 / 800 Catheter 750 / 750 700 / 700 Other: Weight 99.5 kg 99.7 kg Patient Weight 11/03/16 23:59 Weight 99.7 kg - Exam Lungs: bilateral: normal Chest: Normal S1, Normal S2 Extremities: Present: normal Abdomen: Present: normal appearance, soft, gravid Incision: Present: normal, dry, dressed (Kyrie drain) Fundal Height: 1 (U/1) - Labs Labs: Laboratory Results - last 24 hr 11/02/16 11/03/16 08:02 05:05 WBC 13.1 H RBC 3.15 L Hgb 10.3 L Hct 29.7 L MCV 94.3 MCH 32.7 MCHC 34.7 RDW 13.6 Plt Count 156 MPV 11.5 Immature Gran % 0.4 Seg Neutrophils % 85.5 Lymphocytes % 7.7 Monocytes % 6.0 Eosinophils % 0.2 Basophils % 0.2 Neutrophils # 11.2 H Lymphocytes # 1.0 Monocytes # 0.8 Eosinophils # 0.0 Basophils # 0.0 BUN 11 Creatinine 0.74 Est GFR ( Amer) > 60 Est GFR (Non-Af Amer) > 60 BUN/Creatinine Ratio 15 Uric Acid 5.6 AST 12 ALT 8 Lactate Dehydrogenase 163
[2016-11-03] MEDS: Prenatal Vit/FA 1 EACH TABLET PO SCH (08:38)
[2016-11-03] MEDS: Aspirin 81 MG TAB.CHEW PO SCH (08:38)
[2016-11-03] MEDS: Famotidine 20 MG TABLET PO SCH ×2 (08:39→20:26)
[2016-11-03] MEDS ORDERED: NON-FORMULARY MEDICATION 1 EACH EACH (Prenatal Vit Calc,Iron,Folic [Prenatal Vitamins] 1 T PO SCH (09:00)
[2016-11-03] MEDS ORDERED: Prenatal Vit/FA 1 EACH TABLET PO SCH ×2 (09:00)
[2016-11-03 09:28] LABS: Alanine Aminotransferase 9 Units/L (0-55); Aspartate Amino Transferase 22 Units/L (5-34); BUN/Creatinine Ratio 9 (6-26); Blood Urea Nitrogen 7 mg/dL (7-20); Lactate Dehydrogenase 262 Units/L (159-327); eGFR For African Americans > 60 (> 60); eGFR For Non-African Americans > 60 (> 60)
[2016-11-03] MEDS ORDERED: Rho Immune Globulin 1,500 UNIT SYRINGE IM SCH (14:00)
[2016-11-03] MEDS: Ibuprofen 600 MG TABLET PO PRN ×2 (14:01→23:26)
[2016-11-04] MEDS: Prenatal Vit/FA 1 EACH TABLET PO SCH (08:35)
[2016-11-04] MEDS: Famotidine 20 MG TABLET PO SCH (08:36)
[2016-11-04] MEDS: Aspirin 81 MG TAB.CHEW PO SCH (08:36)
[2016-11-04 08:41] VITALS: BP 145/84
--- NOTE | 2016-11-04 09:46 | Discharge Summary ---
Date of Encounter: 11/04/16 Time of Encounter: 09:44 - Discharge Diagnosis (1) Mother currently breast-feeding Priority: Secondary Status: Acute Comments: Pt has breastpump at home (2) Delivered by section Priority: Primary Status: Acute Comments: Pt meeting all post-op milestones. Pain well controlled. Discharge in collaboration with . (3) Hypertension affecting in third trimester Priority: Secondary Status: Chronic Comments: BP well controlled on Labetalol . BP check in office in 1 week. (4) Rh negative status during Priority: Secondary Status: Acute Comments: Rhogam prior to discharge Qualifiers: Trimester: third trimester Qualified Code(s): O09.893 - Supervision of other high risk pregnancies, third trimester - Discharge Medications Prescriptions: OxyCODONE/APAP 5/325 [Percocet 5/325 MG] 1 each PO Q4HR PRN #30 tab PRN Reason: Moderate Pain Ibuprofen [Motrin] 600 mg PO Q6HR PRN #60 tab PRN Reason: Mild Pain per patient choice Docusate [Colace] 100 mg PO BID PRN #60 PRN Reason: Constipation Labetalol [Trandate] 200 mg PO TID #120 tab Home Medications: Blood Pressure Kit Med,Large [Blood Pressure Monitor] 1 each MC ONCE #1 kit 10/13 [Rx] Vit Calc,Iron,Folic [ Vitamins] 1 tab PO DAILY 09/03/16 [ History] Labetalol [Trandate] 200 mg PO TID #90 tablet 09/17/16 [Rx] Docusate [Colace] 100 mg PO BID PRN #60 11/04/16 [Rx] Ibuprofen [Motrin] 600 mg PO Q6HR PRN #60 tab 11/04/16 [Rx] Labetalol [Trandate] 200 mg PO TID #120 tab 11/04/16 [Rx] OxyCODONE/APAP 5/325 [Percocet 5/325 MG] 1 each PO Q4HR PRN #30 tab 11/04/16 [Rx ] Vit/FA 1 each PO DAILY tab 11/04/16 [Rx] Simethicone [Gas-X] 80 mg PO TID PRN 11/04/16 [Rx] Allergies/Adverse Reactions: Allergies No Known Allergies Allergy (Verified 09/04/16 18:23) Data Procedures and tests throughout hospitalization: Laboratory Tests 11/02/16 11/02/16 11/02/16 08:02 08:02 20:42 WBC 11.0 RBC 3.45 L Hgb 11.2 L Hct 32.4 L MCV 93.9 MCH 32.5 MCHC 34.6 RDW 13.8 Plt Count 163 MPV 10.9 Immature Gran % 0.5 Seg Neutrophils % 78.2 Lymphocytes % 11.7 Monocytes % 8.6 Eosinophils % 0.7 Basophils % 0.3 Neutrophils # 8.6 Lymphocytes # 1.3 Monocytes # 0.9 Eosinophils # 0.1 Basophils # 0.0 BUN 11 Creatinine 0.74 Est GFR ( Amer) > 60 Est GFR (Non-Af Amer) > 60 BUN/Creatinine Ratio 15 Uric Acid 5.6 AST 12 ALT 8 Lactate Dehydrogenase 163 Screen NEGATIVE Baby's Blood Type O RH POSITIVE Mother's Blood Type A RH NEGATIVE Rhogam Indicated YES Rhogam Req for Mother 1 11/03/16 11/03/16 05:05 08:52 WBC 13.1 H RBC 3.15 L Hgb 10.3 L Hct 29.7 L MCV 94.3 MCH 32.7 MCHC 34.7 RDW 13.6 Plt Count 156 MPV 11.5 Immature Gran % 0.4 Seg Neutrophils % 85.5 Lymphocytes % 7.7 Monocytes % 6.0 Eosinophils % 0.2 Basophils % 0.2 Neutrophils # 11.2 H Lymphocytes # 1.0 Monocytes # 0.8 Eosinophils # 0.0 Basophils # 0.0 BUN 7 Creatinine 0.77 Est GFR ( Amer) > 60 Est GFR (Non-Af Amer) > 60 BUN/Creatinine Ratio 9 Uric Acid 6.0 AST 22 ALT 9 Lactate Dehydrogenase 262 Screen Baby's Blood Type Mother's Blood Type Rhogam Indicated Rhogam Req for Mother Date of admission: 11/02/16 07:42 Primary care physician: PCP NONE Discharging clinician: Lizabeth Asher Anticipated date of discharge: 11/04/16 - Patient Status Disposition: Home, Self-Care Condition: Good Functional capacity at discharge: independent ambulation Overall status at discharge: patient is progressing back to baseline - Discharge Instructions Follow Up With: NONE,PCP [Primary Care Provider] - Tino Miller MD [Partnered Physician] - - Diet and Activity Activity: increase activity as tolerated Hospital Course Reason for admission: section Delivery: section Episiotomy: none Laceration: none Other procedures: none complications: none Discharge diagnosis: IUP at term delivered Ad[place] baby: female Hospital course: - Date of procedure: 11/02/16 Preop diagnosis: breech Post-op diagnosis: same Procedure: primary low transverse Surgeon: Tino Miller Estimated blood loss (cc): 800 Flavorer: David Juárez Anesthesiologist: Vincent Alvarez Anesthesia Type: Spinal section complications: none Disposition: PACU Specimens: Placenta, Cord blood - (s) A Delivery Date: 11/02/16 Infant Delivery Time: 19:05 Presentation: breech Gender: Female Viability: Viable Pounds: 5 Ounces: 2 at 1 minute: 8 at 5 minutes: 9 Shoulder Dystocia: not encountered Specimens collected: cord blood Placenta: complete extraction Cord: 3 umbilical vessels Time spent discussing smoking cessation with patient: 3 to 10 minutes Time Attestation: Total time spent providing and/or coordinating discharge services: Time Spent: Less than 30 minutes - VTE Reasons for not Prescribing Prophylaxis: Treatment not Indicated - Low risk for VTE Documentation of Mechanical Device: Intermittent pneumatic compression device Exam - Constitutional Vitals: Temp Pulse Resp BP Pulse Ox 98.2 F 93 16 145/84 96 11/04/16 07:50 11/04/16 07:50 11/04/16 07:50 11/04/16 07:50 11/04/16 07:50 General appearance IM: A&O X 3 - Respiratory Respiratory exam: Present: CTAB - Cardiovascular Cardiovascular exam IM: Present: RRR - GI/Abdominal GI/Abdominal exam IM: soft, no peritoneal signs Incision: dressed (GAETANO dry and intact) - External exam: normal external exam Uterine Tone: Firm - Extremities Exam Extremities exam IM: Present: normal inspection - Neurological Exam Neurological exam: normal gait, oriented X3 - Psychiatric Additional comments: reports some mood swings but overall good mood - Other Additional findings: OARRS reviewed
== END 2016-11-04 14:00 | disposition home or self-care (01) | DRG 540 ==
LOC: 1NENULAB 07:42 → 1NENUOBS 22:21
PROVIDERS: ADMIT Obstetrics & Gynecology; ATTEND Obstetrics & Gynecology

== ENCOUNTER 2019-12-27 04:51 | Inpatient (IN) ==
[2019-12-27] MEDS ORDERED: Metoclopramide 10 MG/2 ML VIAL IVP PRN ×2 (05:01→12:06)
[2019-12-27] MEDS ORDERED: Azithromycin 500 MG in 0.9 % Sodium Chloride 250 ML IVPB ONE (05:01)
[2019-12-27] MEDS ORDERED: Lidocaine 1% 20 ML MDV INFILT PRN (05:01)
[2019-12-27] MEDS ORDERED: Famotidine 20 MG/2 ML VIAL IVP PRN (05:01)
[2019-12-27] MEDS ORDERED: Ringers Solution, Lactated 1,000 ML IVC ONE (05:01)
[2019-12-27] MEDS ORDERED: Naloxone 0.4 MG/ML INJ IVP PRN (05:01)
[2019-12-27] MEDS ORDERED: Ringers Solution, Lactated 1,000 ML IVC SCH (05:15)
[2019-12-27 05:43] LABS: Basophils % 0.2 %; Eosinophils % 0.2 %; Hematocrit 37.1 % (35.3-44.9); Hemoglobin 12.6 g/dL (11.5-15.4); Immature Granulocytes % 0.4 % (0-4); Lymphocytes # 1.7 K/mcL (0.6-4.6); Mean Corpuscular Hemoglobin 32.7 pg (28.0-33.3); Mean Corpuscular Volume 96.4 fL (83.0-100.0); Mean Platelet Volume 11.7 fL (9.4-12.4); Monocytes # 0.6 K/mcL (0.0-1.3); Monocytes % 7.8 %; Neutrophils # 5.8 K/mcL (1.6-8.9); Platelet Count 165 K/mcL (140-400); Red Blood Count 3.85 M/mcL (3.82-4.97); Red Cell Distribution Width 13.4 % (11.5-14.5); Segmented Neutrophils % 70.4 %; White Blood Count 8.2 K/mcL (4.3-11.1)
[2019-12-27 05:55] LABS: Alanine Aminotransferase 9 Units/L (7-52); Aspartate Amino Transferase 11 Units/L (13-39); BUN/Creatinine Ratio 13 (6-26); Blood Urea Nitrogen 7 mg/dL (6-20); Lactate Dehydrogenase 123 Units/L (140-271); Protein/Creatinine Ratio,Urine 0.17 mg/mg (0.00-0.20); eGFR For African Americans > 60 (> 60); eGFR For Non-African Americans > 60 (> 60)
[2019-12-27 05:56] LABS: Amphetamine Screen,Urine Negative ng/mL (Cutoff=1000); Barbiturate Screen,Urine Negative ng/mL (Cutoff=200); Benzodiazepines Screen,Urine Negative ng/mL (Cutoff=200); Cannabinoid Screen,Urine Negative ng/mL (Cutoff = 50); Cocaine Screen,Urine Negative ng/mL (Cutoff= 300); Opiate Screen,Urine Negative ng/mL (Cutoff=300); Phencyclidine Screen,Urine Negative ng/mL (Cutoff=25)
[2019-12-27] MEDS ORDERED: CeFAZolin 2,000 MG/50 ML BAG IVPB ONE (07:03)
[2019-12-27] MEDS ORDERED: Penicillin G Potassium 5,000,000 UNIT in 0.9 % Sodium Chloride Mini Bag 100 ML IVPB STA (07:53)
[2019-12-27] MEDS ORDERED: Oxytocin 20 units/ LR 1000 mL 20 UNIT/1,000 ML BAG IVC ONE (08:20)
[2019-12-27] MEDS ORDERED: Ondansetron 4 MG/2 ML VIAL IVP PRN (12:06)
[2019-12-27] MEDS ORDERED: Sennosides 8.6 MG TABLET PO PRN (12:06)
[2019-12-27] MEDS ORDERED: Rho Immune Globulin 1,500 UNIT SYRINGE IM ONE (12:06)
[2019-12-27] MEDS: *HR* OxyCODONE/APAP 5/325 TABLET PO PRN (13:00)
[2019-12-27] MEDS: metroNIDAZOLE 500 MG TABLET PO SCH ×2 (13:51→21:09)
[2019-12-27] MEDS: cephALEXin 500 MG CAPSULE PO SCH ×2 (13:51→21:09)
[2019-12-27] MEDS: Acetaminophen 325 MG TABLET PO PRN (17:18)
[2019-12-27] MEDS: Ibuprofen 600 MG TABLET PO SCH (17:18)
[2019-12-27] MEDS: Oxytocin 20 units/ LR 1000 mL 20 UNIT/1,000 ML BAG IVC SCH (18:17)
[2019-12-28] MEDS: Oxytocin 20 units/ LR 1000 mL 20 UNIT/1,000 ML BAG IVC SCH (04:48)
[2019-12-28 06:06] LABS: Basophils % 0.2 %; Eosinophils # 0.1 K/mcL (0.0-0.6); Eosinophils % 0.6 %; Hematocrit 28.4 % (35.3-44.9); Hemoglobin 9.4 g/dL (11.5-15.4); Immature Granulocytes % 0.4 % (0-4); Lymphocytes # 1.9 K/mcL (0.6-4.6); Lymphocytes % 19.4 %; Mean Corpuscular HGB Conc 33.1 g/dL (31.6-35.5); Mean Corpuscular Volume 99.6 fL (83.0-100.0); Mean Platelet Volume 12.1 fL (9.4-12.4); Monocytes # 0.7 K/mcL (0.0-1.3); Monocytes % 7.7 %; Neutrophils # 6.9 K/mcL (1.6-8.9); Platelet Count 128 K/mcL (140-400); Red Blood Count 2.85 M/mcL (3.82-4.97); Red Cell Distribution Width 13.6 % (11.5-14.5); Segmented Neutrophils % 71.7 %; White Blood Count 9.6 K/mcL (4.3-11.1)
[2019-12-28] MEDS: Acetaminophen 325 MG TABLET PO PRN (06:37)
[2019-12-28] MEDS: Ibuprofen 600 MG TABLET PO SCH ×4 (08:09→22:37)
[2019-12-28] MEDS: metroNIDAZOLE 500 MG TABLET PO SCH ×3 (08:09→19:28)
[2019-12-28] MEDS: cephALEXin 500 MG CAPSULE PO SCH ×3 (08:09→19:28)
[2019-12-28] MEDS: Prenatal Vit/FA 1 EACH TABLET PO SCH (08:09)
[2019-12-28] MEDS: *HR* OxyCODONE/APAP 5/325 TABLET PO PRN ×3 (08:37→19:36)
[2019-12-28] MEDS: Simethicone 80 MG TAB.CHEW PO PRN (19:28)
[2019-12-29] MEDS: *HR* OxyCODONE/APAP 5/325 TABLET PO PRN ×2 (04:28→08:54)
[2019-12-29] MEDS: Simethicone 80 MG TAB.CHEW PO PRN (04:28)
[2019-12-29] MEDS: Ibuprofen 600 MG TABLET PO SCH (07:35)
[2019-12-29] MEDS: Prenatal Vit/FA 1 EACH TABLET PO SCH (07:35)
[2019-12-29] MEDS: metroNIDAZOLE 500 MG TABLET PO SCH (07:35)
[2019-12-29] MEDS: cephALEXin 500 MG CAPSULE PO SCH (07:37)
[2019-12-29] MEDS ORDERED: Lidocaine 1% 20 ML MDV ID ONE (08:17)
[2019-12-29] MEDS ORDERED: Etonogestrel 68 MG IMPLANT IL ONE (08:17)
[2019-12-29 09:27] LABS: Basophils % 0.3 %; Eosinophils # 0.1 K/mcL (0.0-0.6); Eosinophils % 1.4 %; Hematocrit 26.7 % (35.3-44.9); Hemoglobin 8.7 g/dL (11.5-15.4); Immature Granulocytes % 0.5 % (0-4); Lymphocytes # 1.3 K/mcL (0.6-4.6); Lymphocytes % 16.5 %; Mean Corpuscular HGB Conc 32.6 g/dL (31.6-35.5); Mean Corpuscular Hemoglobin 32.5 pg (28.0-33.3); Mean Corpuscular Volume 99.6 fL (83.0-100.0); Mean Platelet Volume 11.7 fL (9.4-12.4); Monocytes # 0.5 K/mcL (0.0-1.3); Monocytes % 6.8 %; Neutrophils # 5.9 K/mcL (1.6-8.9); Platelet Count 137 K/mcL (140-400); Red Blood Count 2.68 M/mcL (3.82-4.97); Red Cell Distribution Width 13.8 % (11.5-14.5); Segmented Neutrophils % 74.5 %
[2019-12-29 09:45] LABS: Alanine Aminotransferase 8 Units/L (7-52); Aspartate Amino Transferase 13 Units/L (13-39); BUN/Creatinine Ratio 11 (6-26); Blood Urea Nitrogen 7 mg/dL (6-20); Lactate Dehydrogenase 141 Units/L (140-271); Uric Acid 6.1 mg/dL (2.3-7.6); eGFR For African Americans > 60 (> 60); eGFR For Non-African Americans > 60 (> 60)
[2019-12-29 13:44] VITALS: BP 149/90
== END 2019-12-29 14:31 | disposition home or self-care (01) | DRG 540 ==
LOC: 1NENULAB 04:51 → 1NENUOBS 11:50
PROVIDERS: ADMIT Obstetrics & Gynecology; ATTEND Obstetrics & Gynecology